=== PATIENT | female | born 1945 | race Two or more races ===

== ENCOUNTER 2020-12-19 10:10 | Inpatient (IN) | payer MEDICARE, OTHER ==
[2020-12-19] VITALS (7 sets, daily range): BP systolic 109–158; BP diastolic 66–80
[~2020-12-19] VITALS: Ht 154.9 cm; Wt 51.3 kg
[2020-12-19] MEDS ORDERED: FUROSEMIDE 40 MG/4 ML VIAL IV ONE (10:30)
[2020-12-19 11:56] LABS: INR 1.21 (0.9-1.15); Partial Thromboplastin Time 24.2 sec (23.6-33.0)
[2020-12-19 12:00] LABS: Albumin 2.8 g/dL (3.4-5.0); Anion Gap 11 (5-15); Blood Urea Nitrogen 34 mg/dL (7-18); Calcium 10.2 mg/dL (8.5-10.1); Carbon Dioxide 24 mmol/L (21-32); Chloride 100 mmol/L (98-107); Hemoglobin 8.2 g/dL (12.2-16.2); Potassium 4.2 mmol/L (3.5-5.1); Sodium 135 mmol/L (136-145); White Blood Cell 25.8 10^3/uL (4.4-10.8)
[2020-12-19 12:01] LABS: Mean Corpuscular Hemoglobin 26.3 pg (28.0-32.0); Mean Corpuscular Hgb Conc. 30.2 g/dL (32.0-36.0); Mean Corpuscular Volume 87.2 fL (80.0-100.0); Red Cell Distribution Width 16.6 % (11.8-14.3)
[2020-12-19 12:02] LABS: Basophils % (manual) 0 (0.0-2.0); Blast Cells 0; Eosinophils % (manual) 0 (0-7); Metamyelocytes % 0; Myelocytes % 0; Promyelocytes % 0; Reactive Lymphocytes 0
[2020-12-19 12:11] LABS: Alanine Aminotransferase 23 U/L (13-56); Alkaline Phosphatase 98 U/L (45-117); Aspartate Aminotransferase 45 U/L (15-37); BUN/Creatinine Ratio 14.5; Bilirubin, Total 0.4 mg/dL (0.2-1.0); GFR African American 26 mL/min; GFR Non-African American 22 mL/min; Total Protein 8.7 g/dL (6.4-8.2)
[2020-12-19 12:24] LABS: CRP High Sensitivity > 19.0 mg/dL (< 0.3); Glucose 560 mg/dL (74-106)
[2020-12-19] MEDS ORDERED: InsuLIN REG 1unit/0.01ml Soln (100units/ml) SC ONE ×2 (13:15→14:45)
[2020-12-19] MEDS ORDERED: InsuLIN REG 1unit/0.01ml Soln (100units/ml) IV ONE (13:30)
[2020-12-19 13:51] LABS: Band Neutrophils % (manual) 7; Lymphocytes % (manual) 1 (10.0-50.0); Monocytes % (manual) 1 (0-12)
[2020-12-19 14:38] LABS: Urine Bacteria NONE SEEN /hpf (None Seen); Urine Blood Negative /uL (Negative); Urine Specific Gravity 1.017 (1.001-1.035); Urine WBC <1 /hpf (0 - 5)
[2020-12-19] MEDS ORDERED: SODIUM CHLORIDE 0.9% 1,000 ML IV SCH ×2 (14:45→16:00)
[2020-12-19] MEDS ORDERED: METOPROLOL SUCCINATE XL 50 MG TAB PO ONE (14:45)
[2020-12-19] MEDS ORDERED: FUROSEMIDE 100 MG/10ML VIAL IV ONE (14:45)
[2020-12-19] MEDS ORDERED: cefTRIAXone 1GM/50ML D5W 50 ML IV ONE (14:45)
[2020-12-19] MEDS ORDERED: LACTATED RINGER'S 2,000 ML IV ONE (14:45)
[2020-12-19] MEDS ORDERED: ALBUTEROL SULF HFA 90MCG INH 200DOSE IN PRN (14:45)
[2020-12-19] MEDS ORDERED: BENAZEPRIL HCL 10 MG TAB PO ONE (14:45)
[2020-12-19] MEDS ORDERED: ACETAMINOPHEN 500 MG TAB PO PRN (14:45)
[2020-12-19] MEDS ORDERED: CLINDAMYCIN 600MG IV 50 ML IV ONE (14:45)
[2020-12-19] MEDS: ALBUMIN 25% 100 ML IV SCH ×2 (14:45→22:34)
[2020-12-19] MEDS ORDERED: ENOXAPARIN SOD 100 MG/1 ML SYRINGE SC ONE (14:45)
[2020-12-19] MEDS ORDERED: ATORVASTATIN 20 MG TAB PO ONE (14:45)
[2020-12-19] MEDS ORDERED: REMDESIVIR PER PHARMACY 0 ML IV SCH (14:45)
[2020-12-19] MEDS ORDERED: ALBUMIN 25% 100 ML IV ONE (14:45)
[2020-12-19] MEDS ORDERED: MORPHINE SULFATE INJECTION 2 MG/ML SYRG IV PRN ×3 (15:30→16:15)
[2020-12-19] MEDS ORDERED: NITROGLYCERIN 0.4 MG SL TAB SL PRN ×2 (15:30→16:15)
[2020-12-19 16:14] LABS: Basophils # (auto) 0 10 ^3/uL (0-0.2); Eosinophils # (auto) 0 10 ^3/uL (0-0.8); Hematocrit 26.4 % (36.0-46.0); Lymphocytes # (auto) 0.4 10 ^3/uL (0.4-5.4); Monocytes # (auto) 0.3 10 ^3/uL (0-1.3); Monocytes % (auto) 1.3 % (0.0-12.0); Neutrophils # (auto) 19.6 10 ^3/uL (1.6-8.6); Red Blood Cells 3.16 10^6/uL (4.0-5.20)
[2020-12-19] MEDS ORDERED: METOCLOPRAMIDE HCL 5MG/ml INJ 2ml VIAL IV PRN (16:15)
[2020-12-19] MEDS ORDERED: LORazepam 0.5 MG TAB PO PRN (16:15)
[2020-12-19] MEDS ORDERED: hydrALAZINE HCL 20 MG/ML VL IV PRN (16:15)
[2020-12-19] MEDS ORDERED: DOCUSATE SOD 100 MG CAP PO PRN (16:15)
[2020-12-19] MEDS ORDERED: HYDROcodone-ACET 5/325MG TAB PO PRN (16:15)
[2020-12-19 16:16] LABS: Hemoglobin 8.1 g/dL (12.2-16.2); Lymphocytes % (auto) 2.2 % (10.0-50.0); Mean Corpuscular Hemoglobin 25.7 pg (28.0-32.0); Mean Corpuscular Hgb Conc. 30.7 g/dL (32.0-36.0); Mean Corpuscular Volume 83.7 fL (80.0-100.0); Neutrophils % (auto) 96.5 % (37.0-80.0); Red Cell Distribution Width 16.1 % (11.8-14.3); White Blood Cell 20.3 10^3/uL (4.4-10.8)
[2020-12-19 16:23] LABS: Albumin 2.4 g/dL (3.4-5.0); Calcium 9.7 mg/dL (8.5-10.1); Potassium 4.3 mmol/L (3.5-5.1)
[2020-12-19 16:25] LABS: Lactic Acid w/Reflex 4.1 mmol/L (0.4-2.0)
[2020-12-19 16:32] LABS: BUN/Creatinine Ratio 16.6; Bilirubin, Total 0.4 mg/dL (0.2-1.0); CRP High Sensitivity 18.8 mg/dL (< 0.3); Total Protein 7.8 g/dL (6.4-8.2)
[2020-12-19 17:20] LABS: Thyroid Stimulating Hormone 0.94 uIU/mL (0.358-3.74)
[2020-12-19] MEDS: ACCU-CHEK COMFORT CURVE STRIP VI SCH (18:28)
[2020-12-19] MEDS: InsuLIN REG 1unit/0.01ml Soln (100units/ml) SC SCH (18:28)
[2020-12-19] MEDS: SODIUM CHLORIDE 0.9% 1,000 ML IV SCH (18:32)
[2020-12-19] MEDS: CLINDAMYCIN 600MG IV 50 ML IV SCH (22:00)
[2020-12-19] MEDS: POTASSIUM CHL 20 Meq TABLET PO SCH (22:00)
[2020-12-19] MEDS: BUDESONIDE (INHALATION) 180 MCG IH IN SCH (22:00)
[2020-12-20] VITALS (11 sets, daily range): BP systolic 100–141; BP diastolic 53–72
[2020-12-20] MEDS: DEXTROSE (50%) 50ML SYRG IV PRN ×2 (00:57→05:37)
[2020-12-20] MEDS: InsuLIN REG 1unit/0.01ml Soln (100units/ml) SC SCH ×5 (05:23→23:53)
[2020-12-20] MEDS: ACCU-CHEK COMFORT CURVE STRIP VI SCH ×5 (05:23→23:51)
[2020-12-20] MEDS ORDERED: FUROSEMIDE 20 MG/2 ML VIAL IV SCH (06:00)
[2020-12-20 06:16] LABS: Basophils # (auto) 0 10 ^3/uL (0-0.2); Basophils % (auto) 0.1 % (0.0-2.0); Eosinophils # (auto) 0 10 ^3/uL (0-0.8); Hemoglobin 7.9 g/dL (12.2-16.2); Monocytes # (auto) 0.4 10 ^3/uL (0-1.3); Monocytes % (auto) 1.8 % (0.0-12.0)
[2020-12-20 06:19] LABS: Hematocrit 23.9 % (36.0-46.0); Lymphocytes # (auto) 0.6 10 ^3/uL (0.4-5.4); Lymphocytes % (auto) 2.7 % (10.0-50.0); Mean Corpuscular Hemoglobin 26.9 pg (28.0-32.0); Mean Corpuscular Hgb Conc. 32.9 g/dL (32.0-36.0); Mean Corpuscular Volume 81.7 fL (80.0-100.0); Neutrophils # (auto) 19.5 10 ^3/uL (1.6-8.6); Neutrophils % (auto) 95.4 % (37.0-80.0); Nucleated Red Blood Cells % 0.2 %; Red Blood Cells 2.93 10^6/uL (4.0-5.20); Red Cell Distribution Width 15.6 % (11.8-14.3); White Blood Cell 20.5 10^3/uL (4.4-10.8)
[2020-12-20] MEDS: ALBUMIN 25% 100 ML IV SCH (06:20)
[2020-12-20 06:27] LABS: INR 1.16 (0.9-1.15); Partial Thromboplastin Time 26.2 sec (23.6-33.0)
[2020-12-20 06:28] LABS: Albumin 3.1 g/dL (3.4-5.0); Calcium 9.6 mg/dL (8.5-10.1); Potassium 4.5 mmol/L (3.5-5.1)
[2020-12-20] MEDS: CLINDAMYCIN 600MG IV 50 ML IV SCH ×2 (06:28→08:15)
[2020-12-20 06:34] LABS: BUN/Creatinine Ratio 18.3; Bilirubin, Total 0.4 mg/dL (0.2-1.0); Phosphorus 3.3 mg/dL (2.5-4.90)
[2020-12-20 06:35] LABS: % Iron Saturation 20.7 % (15-50)
[2020-12-20] MEDS: SODIUM CHLORIDE 0.9% 1,000 ML IV SCH (08:55)
[2020-12-20] MEDS: cefTRIAXone 1GM/50ML D5W 50 ML IV SCH (09:00)
[2020-12-20] MEDS: BENAZEPRIL HCL 10 MG TAB PO SCH (09:58)
[2020-12-20] MEDS: POTASSIUM CHL 20 Meq TABLET PO SCH (09:58)
[2020-12-20] MEDS: ASPirin 81 mg TAB PO SCH (09:58)
[2020-12-20] MEDS: METOPROLOL SUCCINATE XL 50 MG TAB PO SCH (09:59)
[2020-12-20] MEDS: ENOXAPARIN SOD 40 MG/0.4 ML SYRINGE SC SCH (09:59)
[2020-12-20] MEDS ORDERED: CHOLECALCIFEROL (VITD3) 2,000 UNIT CAP/TAB PO SCH (10:00)
[2020-12-20] MEDS: BUDESONIDE (INHALATION) 180 MCG IH IN SCH (10:00)
[2020-12-20] MEDS ORDERED: ASCORBIC ACID 1,000 MG TAB PO SCH (10:00)
[2020-12-20] MEDS ORDERED: DexAMETHasone SOD PHOS 10MG/1ML VIAL INJ IV SCH (10:00)
[2020-12-20] MEDS ORDERED: ZINC SULFATE 220mg CAP or TAB PO SCH (10:00)
[2020-12-20] MEDS: DOXYCYCLINE 100MG/250ML 250 ML IV SCH ×2 (11:45→23:51)
[2020-12-20] MEDS ORDERED: FUROSEMIDE 40 MG/4 ML VIAL IV ONE (11:45)
[2020-12-20] MEDS ORDERED: ONDA-144 PO (17:03)
[2020-12-20] MEDS ORDERED: OYST500T28 PO (17:03)
[2020-12-20] MEDS ORDERED: GLIM2TAB33 PO (17:03)
[2020-12-20] MEDS ORDERED: VERA240C2 PO (17:03)
[2020-12-20] MEDS ORDERED: SIME80CH6 PO (17:03)
[2020-12-20] MEDS ORDERED: PIOG15TA25 PO (17:03)
[2020-12-20] MEDS ORDERED: ROSU10TA16 PO (17:03)
[2020-12-20] MEDS ORDERED: EMPA1TAB PO (17:03)
[2020-12-20] MEDS ORDERED: SENN1TAB14 PO (17:03)
[2020-12-20] MEDS ORDERED: FENO145T27 PO (17:03)
[2020-12-20] MEDS ORDERED: CLON0.1T PO (17:03)
[2020-12-20] MEDS ORDERED: DEXL60CA4 PO (17:03)
[2020-12-20] MEDS ORDERED: ASPI1TAB20 PO (17:03)
[2020-12-20] MEDS: ATORVASTATIN 20 MG TAB PO SCH (22:35)
[2020-12-21 02:04] LABS: Creatinine, Urine 26 mg/dL (30.0-125.0); Sodium Urine 93 mmol/L (40-220)
[2020-12-21 02:07] LABS: Alcohol, Urine < 3.0 mg/dL (0-10); Amphetamine Screen, Urine NEGATIVE (NEGATIVE); Barbiturate Scree,Urine NEGATIVE (NEGATIVE); Benzodiazephine Screen, Urine NEGATIVE (NEGATIVE); Cannabinoid Screen, Urine NEGATIVE (NEGATIVE); Cocaine Screen, Urine NEGATIVE (NEGATIVE); Opiate Scree,Urine NEGATIVE (NEGATIVE); Phencyclidine Screen, Urine NEGATIVE (NEGATIVE)
[2020-12-21 02:20] LABS: Urine Bacteria FEW /hpf (None Seen); Urine Blood TRACE /uL (Negative); Urine Hyaline Cast FEW /lpf (0 - 2); Urine Specific Gravity 1.011 (1.001-1.035); Urine WBC 2 /hpf (0 - 5)
[2020-12-21 05:00] VITALS: BP 124/64
[2020-12-21] MEDS: ACCU-CHEK COMFORT CURVE STRIP VI SCH ×4 (06:48→23:16)
[2020-12-21] MEDS: InsuLIN REG 1unit/0.01ml Soln (100units/ml) SC SCH ×5 (06:50→23:15)
[2020-12-21 07:20] LABS: Hematocrit 24.7 % (36.0-46.0); Hemoglobin 7.8 g/dL (12.2-16.2); Mean Corpuscular Hemoglobin 26.9 pg (28.0-32.0); Mean Corpuscular Hgb Conc. 31.6 g/dL (32.0-36.0); Mean Corpuscular Volume 85.1 fL (80.0-100.0); Red Blood Cells 2.91 10^6/uL (4.0-5.20); Red Cell Distribution Width 16.4 % (11.8-14.3); White Blood Cell 25.5 10^3/uL (4.4-10.8)
[2020-12-21 07:25] LABS: Band Neutrophils % (manual) 0; Basophils % (manual) 0 (0.0-2.0); Blast Cells 0; Eosinophils % (manual) 0 (0-7); Metamyelocytes % 0; Myelocytes % 0; Promyelocytes % 0; Reactive Lymphocytes 0
[2020-12-21 07:33] LABS: Albumin 1.7 g/dL (3.4-5.0); Anion Gap 18 (5-15); BUN/Creatinine Ratio 14.2; Blood Urea Nitrogen 31 mg/dL (7-18); Calcium 7.1 mg/dL (8.5-10.1); Carbon Dioxide 15 mmol/L (21-32); Chloride 105 mmol/L (98-107); GFR African American 28 mL/min; GFR Non-African American 23 mL/min; Glucose 172 mg/dL (74-106); Potassium 5.1 mmol/L (3.5-5.1); Sodium 138 mmol/L (136-145)
[2020-12-21 07:36] LABS: Alanine Aminotransferase 31 U/L (13-56); Alkaline Phosphatase 79 U/L (45-117); Aspartate Aminotransferase 98 U/L (15-37); Bilirubin, Total 0.4 mg/dL (0.2-1.0); Phosphorus 2.5 mg/dL (2.5-4.90); Total Protein 7.4 g/dL (6.4-8.2)
[2020-12-21 08:45] LABS: Lymphocytes % (manual) 7 (10.0-50.0); Monocytes % (manual) 2 (0-12)
[2020-12-21 09:00] VITALS: BP 129/80
[2020-12-21] MEDS: cefTRIAXone 1GM/50ML D5W 50 ML IV SCH (09:20)
[2020-12-21] MEDS: ENOXAPARIN SOD 40 MG/0.4 ML SYRINGE SC SCH (09:21)
[2020-12-21] MEDS: BENAZEPRIL HCL 10 MG TAB PO SCH (09:22)
[2020-12-21] MEDS: ASPirin 81 mg TAB PO SCH (09:22)
[2020-12-21] MEDS: METOPROLOL SUCCINATE XL 50 MG TAB PO SCH (09:22)
[2020-12-21] MEDS ORDERED: POLYETHYLENE GLYCOL 17 GM PWDR PO PRN (12:00)
[2020-12-21] MEDS: ACETAMINOPHEN 325 MG TAB PO PRN (12:52)
[2020-12-21] MEDS: DOXYCYCLINE 100MG/250ML 250 ML IV SCH ×2 (13:17→23:15)
[2020-12-21 15:57] LABS: Hepatitis B Surface Antigen Negative (Negative)
[2020-12-21 16:21] LABS: Hepatitis A Ab IgM Negative; Hepatitis B Core IgM Negative; Hepatitis C Antibody Negative (Negative)
[2020-12-21 17:00] VITALS: BP 116/60
[2020-12-21] MEDS: SODIUM BICARBONATE 50ML VIAL 50 ML in SOD CHL 0.45% 1,000 ML IV SCH (18:48)
[2020-12-21] MEDS: ATORVASTATIN 20 MG TAB PO SCH (21:06)
[2020-12-21 22:00] VITALS: BP 112/64
[2020-12-21] MEDS ORDERED: PANTOPRAZOLE 40 MG TAB PO SCH (22:00)
[2020-12-22] MEDS: SODIUM BICARBONATE 50ML VIAL 50 ML in SOD CHL 0.45% 1,000 ML IV SCH (00:45)
[2020-12-22] MEDS: ACCU-CHEK COMFORT CURVE STRIP VI SCH ×4 (05:10→23:30)
[2020-12-22] MEDS: InsuLIN REG 1unit/0.01ml Soln (100units/ml) SC SCH ×4 (05:10→23:32)
[2020-12-22 07:34] LABS: Hemoglobin 8.4 g/dL (12.2-16.2); Mean Corpuscular Hemoglobin 27.3 pg (28.0-32.0); Mean Corpuscular Hgb Conc. 33.4 g/dL (32.0-36.0); Mean Corpuscular Volume 81.7 fL (80.0-100.0); Red Blood Cells 3.06 10^6/uL (4.0-5.20); Red Cell Distribution Width 16.1 % (11.8-14.3); White Blood Cell 19.2 10^3/uL (4.4-10.8)
[2020-12-22 07:43] LABS: Calcium 8.9 mg/dL (8.5-10.1); Potassium 4.6 mmol/L (3.5-5.1)
[2020-12-22 07:47] LABS: BUN/Creatinine Ratio 27.1
[2020-12-22 07:53] LABS: Basophils % (manual) 0 (0.0-2.0); Blast Cells 0; Eosinophils % (manual) 0 (0-7); Metamyelocytes % 0; Myelocytes % 0; Promyelocytes % 0; Reactive Lymphocytes 0
[2020-12-22] MEDS ORDERED: REGADENOSON 0.4 MG/5 ML SYRG IV ONE (08:00)
[2020-12-22 08:36] VITALS: BP 113/64
[2020-12-22 09:00] VITALS: BP 102/51
[2020-12-22] MEDS ORDERED: FUROSEMIDE 40 MG/4 ML VIAL IV ONE (10:00)
[2020-12-22] MEDS: cefTRIAXone 1GM/50ML D5W 50 ML IV SCH (10:22)
[2020-12-22] MEDS: ENOXAPARIN SOD 40 MG/0.4 ML SYRINGE SC SCH (10:22)
[2020-12-22] MEDS: PANTOPRAZOLE 40 MG TAB PO SCH (10:28)
[2020-12-22] MEDS: ASPirin 81 mg TAB PO SCH (10:28)
[2020-12-22] MEDS: METOPROLOL SUCCINATE XL 50 MG TAB PO SCH (10:28)
[2020-12-22 10:35] LABS: Band Neutrophils % (manual) 4; Lymphocytes % (manual) 8 (10.0-50.0); Monocytes % (manual) 4 (0-12)
[2020-12-22] MEDS: DOXYCYCLINE 100MG/250ML 250 ML IV SCH (11:53)
[2020-12-22 13:00] VITALS: BP 104/59
[2020-12-22] MEDS ORDERED: BUMETANIDE 2.5mg/10ml (0.25 mg/ml) INJ IV ONE (13:15)
[2020-12-22] MEDS ORDERED: DEXTROSE (50%) 50ML SYRG IV PRN (14:15)
[2020-12-22] MEDS ORDERED: levoFLOXacin 750MG 150 ML IV SCH (14:15)
[2020-12-22] MEDS ORDERED: LACTULOSE 20Gm/30ML SOLN PO PRN (15:30)
[2020-12-22] MEDS ORDERED: LACTULOSE 20Gm/30ML SOLN PO ONE (15:30)
[2020-12-22 17:00] VITALS: BP 109/75
[2020-12-22] MEDS: ALBUTEROL SULF 2.5 MG/0.5ML(0.5%) NEB SOLN NEB SCH ×2 (18:45→22:51)
[2020-12-22] MEDS: IPRATROPIUM BROM 0.5 MG/2.5ML INH SOL NEB SCH ×2 (18:45→22:51)
[2020-12-22] MEDS ORDERED: LIDOCAINE 1% (LOCAL ANESTH.) PF 5ml SDV ID ONE (19:30)
[2020-12-22] MEDS: FUROSEMIDE 40 MG/4 ML VIAL IV SCH (19:43)
[2020-12-22] MEDS: ATORVASTATIN 20 MG TAB PO SCH (21:40)
[2020-12-22] MEDS: SODIUM CHLOR 0.9% PF (SALINE LOCK) 10ML VIAL/SYR IV SCH (21:40)
[2020-12-22 21:46] VITALS: BP 116/68
[2020-12-23] VITALS (8 sets, daily range): BP systolic 98–121; BP diastolic 57–68
[2020-12-23] MEDS: ALBUTEROL SULF 2.5 MG/0.5ML(0.5%) NEB SOLN NEB SCH ×6 (02:26→22:23)
[2020-12-23] MEDS: IPRATROPIUM BROM 0.5 MG/2.5ML INH SOL NEB SCH ×6 (02:27→22:23)
[2020-12-23] MEDS: ACCU-CHEK COMFORT CURVE STRIP VI SCH ×3 (05:03→16:32)
[2020-12-23] MEDS: InsuLIN REG 1unit/0.01ml Soln (100units/ml) SC SCH ×3 (05:03→16:34)
[2020-12-23] MEDS: FUROSEMIDE 40 MG/4 ML VIAL IV SCH ×2 (05:38→17:40)
[2020-12-23 07:14] LABS: Basophils # (auto) 0 10 ^3/uL (0-0.2); Eosinophils # (auto) 0 10 ^3/uL (0-0.8); Eosinophils % (auto) 0.1 % (0.0-7.0); Hemoglobin 7.4 g/dL (12.2-16.2); Lymphocytes # (auto) 0.6 10 ^3/uL (0.4-5.4); Mean Corpuscular Hemoglobin 26.9 pg (28.0-32.0); Monocytes # (auto) 0.6 10 ^3/uL (0-1.3)
[2020-12-23 07:18] LABS: Basophils % (auto) 0.1 % (0.0-2.0); Hematocrit 22.8 % (36.0-46.0); Lymphocytes % (auto) 4.2 % (10.0-50.0); Mean Corpuscular Hgb Conc. 32.5 g/dL (32.0-36.0); Mean Corpuscular Volume 82.6 fL (80.0-100.0); Monocytes % (auto) 4.4 % (0.0-12.0); Neutrophils # (auto) 13.4 10 ^3/uL (1.6-8.6); Neutrophils % (auto) 91.2 % (37.0-80.0); Nucleated Red Blood Cells % 0.3 %; Red Blood Cells 2.76 10^6/uL (4.0-5.20); Red Cell Distribution Width 16.1 % (11.8-14.3); White Blood Cell 14.7 10^3/uL (4.4-10.8)
[2020-12-23 07:28] LABS: Potassium 3.3 mmol/L (3.5-5.1)
[2020-12-23 07:37] LABS: Albumin 2.3 g/dL (3.4-5.0); BUN/Creatinine Ratio 29.1; Bilirubin, Total 0.5 mg/dL (0.2-1.0); Calcium 8.5 mg/dL (8.5-10.1); Total Protein 6.5 g/dL (6.4-8.2)
[2020-12-23] MEDS ORDERED: ENOXAPARIN SOD 30 MG/0.3 ML SYRINGE SC SCH (10:03)
[2020-12-23] MEDS ORDERED: FLEET MINERAL OIL ENEMA 133 ML PR ONE (10:15)
[2020-12-23] MEDS ORDERED: POTASSIUM EFFERVESENT TAB 25 MEQ PO ONE (10:30)
[2020-12-23] MEDS: SODIUM CHLOR 0.9% PF (SALINE LOCK) 10ML VIAL/SYR IV SCH ×2 (10:35→23:01)
[2020-12-23] MEDS: POTASSIUM CHL 10 Meq TABLET PO SCH ×2 (10:36→23:01)
[2020-12-23] MEDS: PANTOPRAZOLE 40 MG TAB PO SCH (10:36)
[2020-12-23] MEDS: ASPirin 81 mg TAB PO SCH (10:36)
[2020-12-23] MEDS: METOPROLOL SUCCINATE XL 50 MG TAB PO SCH (10:38)
[2020-12-23] MEDS ORDERED: SPIRONOLACTONE 25 MG TAB PO ONE (12:45)
[2020-12-23] MEDS: ATORVASTATIN 20 MG TAB PO SCH (23:01)
[2020-12-24] VITALS (8 sets, daily range): BP systolic 107–125; BP diastolic 50–64
[2020-12-24] MEDS: ACCU-CHEK COMFORT CURVE STRIP VI SCH ×4 (00:01→18:52)
[2020-12-24] MEDS: IPRATROPIUM BROM 0.5 MG/2.5ML INH SOL NEB SCH ×5 (01:55→17:59)
[2020-12-24] MEDS: ALBUTEROL SULF 2.5 MG/0.5ML(0.5%) NEB SOLN NEB SCH ×5 (01:55→18:00)
[2020-12-24] MEDS: FUROSEMIDE 40 MG/4 ML VIAL IV SCH (06:04)
[2020-12-24] MEDS: InsuLIN REG 1unit/0.01ml Soln (100units/ml) SC SCH ×4 (06:09→18:53)
[2020-12-24 09:44] LABS: BUN/Creatinine Ratio 27.8; Potassium 3.7 mmol/L (3.5-5.1)
[2020-12-24] MEDS ORDERED: levoFLOXacin 500MG 100 ML IV SCH (10:00)
[2020-12-24] MEDS: SODIUM CHLOR 0.9% PF (SALINE LOCK) 10ML VIAL/SYR IV SCH ×2 (10:17→23:02)
[2020-12-24] MEDS: PANTOPRAZOLE 40 MG TAB PO SCH (10:18)
[2020-12-24] MEDS: METOPROLOL SUCCINATE XL 50 MG TAB PO SCH (10:20)
[2020-12-24 10:22] LABS: Eosinophils # (auto) 0 10 ^3/uL (0-0.8); Lymphocytes # (auto) 0.7 10 ^3/uL (0.4-5.4); Monocytes # (auto) 0.9 10 ^3/uL (0-1.3)
[2020-12-24 10:26] LABS: Basophils # (auto) 0.1 10 ^3/uL (0-0.2); Basophils % (auto) 0.4 % (0.0-2.0); Eosinophils % (auto) 0.1 % (0.0-7.0); Hematocrit 21.3 % (36.0-46.0); Hemoglobin 7.1 g/dL (12.2-16.2); Lymphocytes % (auto) 5.2 % (10.0-50.0); Mean Corpuscular Hemoglobin 26.6 pg (28.0-32.0); Mean Corpuscular Hgb Conc. 33.2 g/dL (32.0-36.0); Mean Corpuscular Volume 80.2 fL (80.0-100.0); Monocytes % (auto) 6.4 % (0.0-12.0); Neutrophils # (auto) 12.1 10 ^3/uL (1.6-8.6); Neutrophils % (auto) 87.9 % (37.0-80.0); Nucleated Red Blood Cells % 0.3 %; Red Blood Cells 2.66 10^6/uL (4.0-5.20); Red Cell Distribution Width 16.3 % (11.8-14.3); White Blood Cell 13.8 10^3/uL (4.4-10.8)
[2020-12-24] MEDS ORDERED: FUROSEMIDE 20 MG/2 ML VIAL IV ONE (14:45)
[2020-12-24] MEDS: ATORVASTATIN 20 MG TAB PO SCH (23:01)
[2020-12-25] MEDS: ACCU-CHEK COMFORT CURVE STRIP VI SCH ×3 (00:02→12:22)
[2020-12-25] MEDS: IPRATROPIUM BROM 0.5 MG/2.5ML INH SOL NEB SCH ×3 (00:05→12:17)
[2020-12-25] MEDS: ALBUTEROL SULF 2.5 MG/0.5ML(0.5%) NEB SOLN NEB SCH ×3 (00:06→12:17)
[2020-12-25 00:52] VITALS: BP 126/78
[2020-12-25 01:52] VITALS: BP 119/50
[2020-12-25 05:00] VITALS: BP 119/55
[2020-12-25 06:31] LABS: Basophils # (auto) 0 10 ^3/uL (0-0.2); Basophils % (auto) 0.1 % (0.0-2.0); Eosinophils # (auto) 0 10 ^3/uL (0-0.8); Eosinophils % (auto) 0.3 % (0.0-7.0); Hematocrit 25.5 % (36.0-46.0); Hemoglobin 8.8 g/dL (12.2-16.2); Lymphocytes # (auto) 0.7 10 ^3/uL (0.4-5.4); Mean Corpuscular Hemoglobin 28.1 pg (28.0-32.0); Mean Corpuscular Hgb Conc. 34.6 g/dL (32.0-36.0); Mean Corpuscular Volume 81.4 fL (80.0-100.0); Monocytes % (auto) 5.9 % (0.0-12.0); Neutrophils # (auto) 14.7 10 ^3/uL (1.6-8.6); Neutrophils % (auto) 89.7 % (37.0-80.0); Nucleated Red Blood Cells % 0.2 %; Red Blood Cells 3.13 10^6/uL (4.0-5.20); Red Cell Distribution Width 15.5 % (11.8-14.3); White Blood Cell 16.4 10^3/uL (4.4-10.8)
[2020-12-25] MEDS: InsuLIN REG 1unit/0.01ml Soln (100units/ml) SC SCH ×3 (06:31→13:06)
[2020-12-25 06:35] LABS: BUN/Creatinine Ratio 31.7; Calcium 8.8 mg/dL (8.5-10.1); Potassium 4.1 mmol/L (3.5-5.1)
[2020-12-25 08:00] VITALS: BP 109/54
[2020-12-25 09:00] VITALS: BP 109/54
[2020-12-25] MEDS ORDERED: OSELTAMIVIR 30 MG CAP PO SCH (10:00)
[2020-12-25] MEDS: METOPROLOL SUCCINATE XL 50 MG TAB PO SCH (10:53)
[2020-12-25] MEDS: PANTOPRAZOLE 40 MG TAB PO SCH (10:54)
[2020-12-25] MEDS: ACETAMINOPHEN 325 MG TAB PO PRN (10:54)
[2020-12-25] MEDS: SODIUM CHLOR 0.9% PF (SALINE LOCK) 10ML VIAL/SYR IV SCH (10:54)
[2020-12-25 13:00] VITALS: BP 111/53
== END 2020-12-25 16:25 | disposition home or self-care (01) | DRG 871 ==
LOC: ER 10:10 → EDBD 10:10 → TELE 16:10 → TELE-CENTR 12-20 15:56
PROVIDERS: ADMIT Hospitalist; ATTEND Internal Medicine
PROC: 5A09457 Assistance with Respiratory Ventilation, 24-96 Consecutive Hours, Continuous Positive Airway Pressure (ICD-10-PCS; 2020-12-19)
PROC: 05HD33Z Insertion of Infusion Device into Right Cephalic Vein, Percutaneous Approach (ICD-10-PCS; 2020-12-21)
PROC: B54MZZA Ultrasonography of Right Upper Extremity Veins, Guidance (ICD-10-PCS; 2020-12-21)
PROC: 5A09357 Assistance with Respiratory Ventilation, Less than 24 Consecutive Hours, Continuous Positive Airway Pressure (ICD-10-PCS; principal; 2020-12-22)
PROC: 02HV33Z Insertion of Infusion Device into Superior Vena Cava, Percutaneous Approach (ICD-10-PCS; 2020-12-22)
PROC: 30233N1 Transfusion of Nonautologous Red Blood Cells into Peripheral Vein, Percutaneous Approach (ICD-10-PCS; 2020-12-24)
DX: A41.9 Sepsis, unspecified organism (principal); J18.9 Pneumonia, unspecified organism; N17.0 Acute kidney failure with tubular necrosis; I21.A1 Myocardial infarction type 2; J96.01 Acute respiratory failure with hypoxia; I50.23 Acute on chronic systolic (congestive) heart failure; E44.0 Moderate protein-calorie malnutrition; N18.4 Chronic kidney disease, stage 4 (severe); N13.30 Unspecified hydronephrosis; C78.7 Secondary malignant neoplasm of liver and intrahepatic bile duct; J98.11 Atelectasis; I13.0 Hypertensive heart and chronic kidney disease with heart failure and stage 1 through stage 4 chronic kidney disease, or unspecified chronic kidney disease; E87.4 Mixed disorder of acid-base balance; Z20.822 Contact with and (suspected) exposure to COVID-19; R65.20 Severe sepsis without septic shock; E66.3 Overweight; D64.9 Anemia, unspecified; I48.91 Unspecified atrial fibrillation; E11.22 Type 2 diabetes mellitus with diabetic chronic kidney disease; E87.6 Hypokalemia; M19.90 Unspecified osteoarthritis, unspecified site; Z96.641 Presence of right artificial hip joint; D89.839 Cytokine release syndrome, grade unspecified; R74.01 Elevation of levels of liver transaminase levels; E78.5 Hyperlipidemia, unspecified; Z91.19 Patient's noncompliance with other medical treatment and regimen; Z68.21 Body mass index [BMI] 21.0-21.9, adult; Z90.49 Acquired absence of other specified parts of digestive tract; Z90.710 Acquired absence of both cervix and uterus
CPT/HCPCS: 36415; 36569; 36600; 51702; 71045; 71250; 74176; 76775; 78452; 80048; 80053; 80074; 80307; 81001; 82105; 82306; 82378; 82570; 82728; 82805; 82962; 83036; 83540; 83550; 83605; 83615; 83735; 83880; 83970; 84100; 84300; 84443; 84484; 85007; 85025; 85027; 85379; 85610; 85730; 86141; 86710; 86850; 86900; 86901; 86920; 87040; 87081; 87426; 87804; 93005; 93017; 93306; 93970; 93971; 94640; 94660; 96361; 96365; 96366; 96368; 96372; 96375; 96376; 97110; 97116; 97530; 99291; G0378; G9035; J0696; J1100; J1815; J1956; J3490; P9047